=== PATIENT | female | born 1985 | race Caucasian/White ===

== ENCOUNTER 2016-09-28 06:45 | Inpatient (IN) | payer OTHER ==
[~2016-09-28] VITALS: Ht 157.5 cm; Wt 60.0 kg
[2016-09-28] MEDS ORDERED: D5%-LACTATED RINGERS 1,000 ML IV SCH (06:50)
[2016-09-28] MEDS ORDERED: OXYTOCIN 30U/ 0.9% NaCL 500ML 500 ML IV PRN ×2 (06:50→08:02)
[2016-09-28] MEDS ORDERED: OXYTOCIN 30U/ 0.9% NaCL 500ML 500 ML IV ONE (06:50)
[2016-09-28] MEDS ORDERED: PLEASE ENTER ALLERGIES MC SCH ×4 (07:00→09:55)
[2016-09-28] MEDS ORDERED: ONDANSETRON 2MG/ML, 2ML IVPush PRN (07:00)
[2016-09-28] MEDS ORDERED: TERBUTALINE 1 MG/ML, 1ML SQ PRN (07:00)
[2016-09-28] MEDS ORDERED: FENTANYL PF 100 MCG/2ML IV PRN (07:00)
[2016-09-28] MEDS ORDERED: FENTANYL PF 100 MCG/2ML IVPush PRN (07:00)
[2016-09-28] MEDS ORDERED: CALCIUM CARBONATE 500 MG TAB.CHEW PO PRN ×2 (07:00→23:00)
[2016-09-28] MEDS ORDERED: OXYTOCIN 30U/ 0.9% NaCL 500ML 500 ML ONE ×2 (07:48→23:04)
[2016-09-28 08:19] VITALS: BP 125/77
[2016-09-28] MEDS ORDERED: PLEASE ENTER HEIGHT AND WEIGHT MC SCH (09:00)
[2016-09-28] MEDS ORDERED: NEWBORN KIT ONE (09:15)
[2016-09-28] MEDS: LACTATED RINGERS 1,000 ML IV SCH ×2 (11:38→12:30)
[2016-09-28] MEDS ORDERED: FENTANYL PF 100 MCG/2ML ONE (12:22)
[2016-09-28] MEDS ORDERED: FENTANYL/BUPIV./NS/PF 250 ML EPIDCONT ONE (12:23)
[2016-09-28] MEDS ORDERED: BUPIVACAINE 0.25% ONE (12:23)
[2016-09-28] MEDS ORDERED: FENTANYL/BUPIV./NS/PF 250 ML EPIDCONT SCH (15:31)
[2016-09-28] MEDS ORDERED: LACTATED RINGERS 1,000 ML IV SCH (15:31)
[2016-09-28] MEDS ORDERED: LIDOCAINE 1%, 20ML ONE (15:33)
[2016-09-28] MEDS ORDERED: MISOPROSTOL 200 MCG TABLET ONE (15:33)
[2016-09-28] MEDS ORDERED: LACTATED RINGERS 1,000 ML IVBOLUS PRN (16:00)
[2016-09-28] MEDS ORDERED: ONDANSETRON 2MG/ML, 2ML ONE (17:11)
[2016-09-28] MEDS ORDERED: CARBOPROST TROMETHAMINE 250 MCG/ML, 1ML IM PRN (23:00)
[2016-09-28] MEDS ORDERED: METHYLERGONOVINE 0.2 MG/ML IM PRN (23:00)
[2016-09-28] MEDS ORDERED: ONDANSETRON 2MG/ML, 2ML IV PRN (23:00)
[2016-09-28] MEDS ORDERED: HYDROcodone/APAP 5/325 TABLET PO PRN ×2 (23:00)
[2016-09-28] MEDS ORDERED: MISOPROSTOL 200 MCG TABLET PR PRN (23:00)
[2016-09-28] MEDS ORDERED: ACETAMINOPHEN 325 MG TABLET PO PRN (23:00)
[2016-09-28] MEDS: OXYTOCIN 30U/ 0.9% NaCL 500ML 500 ML IV SCH (23:07)
[2016-09-28] MEDS ORDERED: IBUPROFEN 600 MG TABLET ONE (23:34)
[2016-09-28] MEDS: IBUPROFEN 600 MG TABLET PO PRN (23:36)
[2016-09-29] VITALS (7 sets, daily range): BP systolic 101–117; BP diastolic 64–80
[2016-09-29] MEDS: IBUPROFEN 600 MG TABLET PO PRN ×4 (05:33→23:34)
[2016-09-29] MEDS: OXYTOCIN 30U/ 0.9% NaCL 500ML 500 ML IV SCH (08:37)
[2016-09-29] MEDS ORDERED: PRENATAL VIT/IRON/FA 1 EACH TABLET PO SCH (09:00)
[2016-09-29] MEDS: DOCUSATE 100 MG CAPSULE PO PRN ×2 (09:29→23:34)
[2016-09-30] MEDS: IBUPROFEN 600 MG TABLET PO PRN (05:46)
[2016-09-30 08:00] VITALS: BP 112/68
[2016-09-30] MEDS ORDERED: IBUP-1222 PO (09:32)
[2016-09-30] MEDS ORDERED: HYDR-3240 PO (09:33)
== END 2016-09-30 11:30 | disposition home or self-care (01) | DRG 775 ==
LOC: LDIP 06:45 → 2NW 09-29 00:36
PROVIDERS: ADMIT Obstetrics & Gynecology; ATTEND Obstetrics & Gynecology
PROC: 10E0XZZ Delivery of Products of Conception, External Approach (ICD-10-PCS; principal; 2016-09-28)
PROC: 10907ZC Drainage of Amniotic Fluid, Therapeutic from Products of Conception, Via Natural or Artificial Opening (ICD-10-PCS; 2016-09-28)
PROC: 3E033VJ Introduction of Other Hormone into Peripheral Vein, Percutaneous Approach (ICD-10-PCS; 2016-09-28)
PROC: 00HU33Z Insertion of Infusion Device into Spinal Canal, Percutaneous Approach (ICD-10-PCS; 2016-09-28)
PROC: 3E0R3CZ (ICD-10-PCS; 2016-09-28)
DX: O69.1XX0 Labor and delivery complicated by cord around neck, with compression, not applicable or unspecified (principal); Z37.0 Single live birth; Z3A.39 39 weeks gestation of pregnancy
CPT/HCPCS: 36415; 85025; 86850; 86900; J2590; J7120; J7121